=== PATIENT | female | born 1985 | race Caucasian/White ===

== ENCOUNTER 2018-02-12 10:09 | Emergency (ER) | payer BC, MEDICARE, SELFPAY ==
--- NOTE | 2018-02-12 10:24 | ED_ITS ---
HPI - General Adult General Chief complaint: Nausea/Vomiting/Diarrhea Stated complaint: throwing up, chest pains Time Seen by Provider: 02/12/18 10:12 Source: patient Mode of arrival: ambulatory Limitations: no limitations History of Present Illness HPI narrative: Patient states that a couple days ago she had a fever and chills. Has had a sore throat since then. States that last evening she had multiple episodes of nausea and vomiting and then afterwards developed left upper quadrant pain and retrosternal pain that did not get worse with palpation or movement. States she is somewhat feeling nauseous now. No problems breathing. No coughing. Related Data Previous Rx's Medication Instructions Recorded azithromycin See Label Instructions .ROUTE 02/12/18 .COMPLEX #6 tab ondansetron 4 mg PO Q6-8H PRN #14 tab 02/12/18 ondansetron 4 mg PO Q6-8H PRN #6 tab 02/12/18 ranitidine HCl [Zantac] 150 mg PO DAILY #14 tab 02/12/18 sucralfate [Carafate] 5 ml PO QID #420 ml 02/12/18 Allergies Allergy/AdvReac Type Severity Reaction Status Date / Time Penicillins Allergy Hives Verified 02/12/18 10:36 clarithromycin [From Biaxin] AdvReac Vomiting Verified 02/12/18 10:36 Sulfa (Sulfonamide AdvReac Vomiting Verified 02/12/18 10:36 Antibiotics) Review of Systems Constitutional Reports fatigue, Reports fever(s) and Denies headache(s) ENT Ears, Nose, Mouth, and Throat: Denies vertigo, Denies dizziness and Denies headache(s) Cardiovascular Reports chest pain, Denies syncope, Denies palpitations and Denies dyspnea Respiratory Denies cough and Denies dyspnea Gastrointestinal Gastrointestinal: Reports abdominal pain (Left upper quadrant), Denies constipation, Denies diarrhea, Reports nausea and Reports vomiting Genitourinary Denies dysuria Musculoskeletal Denies myalgias and Denies arthralgias Integumentary/Breasts Denies lesions and Denies rash Neurologic Denies vertigo, Denies dizziness, Denies syncope and Denies headache(s) Endocrine Reports fatigue and Denies palpitations Hematologic/Lymphatic Denies easy bleeding and Denies easy bruising PFSH Social History Smoking Status: Never smoker Exam Initial Vital Signs Initial Vital Signs: Vital Signs Temperature 98.8 F 02/12/18 10:26 Pulse Rate 96 H 02/12/18 10:26 Respiratory Rate 21 02/12/18 10:26 Blood Pressure 131/76 H 02/12/18 10:26 Pulse Oximetry 100 02/12/18 10:26 Const General: cooperative, healthy appearing, comfortable, well developed, well groomed and No acute distress Orientation: alert, awake and oriented x3 HENMT Head: normal to inspection, normocephalic and atraumatic Ears: TM's normal bilaterally Throat: uvula midline and other Neck Lymphatic: lymphadenopathy Resp Effort & Inspection: normal respiratory effort Auscultation: clear to auscultation bilaterally Cardio Rate: regular rate Pulses: radial pulses present GI Inspection: normal to inspection and non-distended Palpation: soft, No firm and No tender Skin General: no rashes or lesions noted Trauma: no lacerations or abrasions Neuro General: alert, awake and oriented x3 Cognition: normal cognition Speech: speech normal Gait: normal gait Motor: muscle tone normal throughout Sensory Exam: no sensory deficits noted Extrem General: normal to inspection Psych Appearance: grossly normal and well kempt Course Orders Ordered: ED Orders 02/12/18 10:23 XR chest 2V Stat 02/12/18 10:30 EKG-12 Lead Stat 02/12/18 11:25 Complete Blood Count AUTO DIFF Stat Comprehensive Metabolic Panel Stat Lipase Stat Test Serum,Qual Stat Discontinued Medications Al Hydrox/Mg Hydrox/Simethicone 20 ml/ Lidocaine HCl 15 ml 0 ml PO NOW ONE Stop: 02/12/18 11:12 Last Admin: 02/12/18 11:39 Dose: 35 ml Ondansetron HCl (Zofran) 4 mg IV NOW ONE Stop: 02/12/18 11:12 Last Admin: 02/12/18 11:39 Dose: 4 mg Ranitidine HCl (Zantac) 300 mg PO NOW ONE Stop: 02/12/18 12:34 Last Admin: 02/12/18 12:43 Dose: 300 mg Vital Signs - 8 hr 02/12/18 10:26 02/12/18 11:02 02/12/18 11:38 Temperature 98.8 F Pulse Rate 96 H 81 86 Respiratory Rate 21 17 18 Blood Pressure 131/76 H Blood Pressure [Left Arm] 129/80 H 124/77 H Pulse Oximetry 100 98 100 02/12/18 12:20 02/12/18 12:33 02/12/18 12:56 Temperature 98.4 F Pulse Rate 97 H 97 H 100 H Respiratory Rate 20 17 20 Blood Pressure 123/71 H Blood Pressure [Left Arm] 119/65 123/71 H Pulse Oximetry 99 100 98 Medical Decision Making MDM Narrative Medical decision making narrative: Chest x-ray shows no signs of pneumonia, EKG is unremarkable. Labs not consistent with gallbladder pathology or pancreatitis. She was strep positive. Patient is allergic to penicillin. She has had azithromycin in the past. Also suspect that her left upper quadrant pain and her chest symptoms are related to the vomiting last evening. She did have a GI cocktail here in the emergency department. We discussed return precautions. She expressed understanding and agreement with plan. Lab Data Result diagrams: 02/12/18 11:25 02/12/18 11:25 Lab Results 02/12/18 02/12/18 02/12/18 Range/Units 11:25 11:25 11:25 WBC 16.3 H (4.5-11.0) X10^3/uL RBC 4.55 (4.0-5.2) X10^6/uL Hgb 13.4 (12.0-16.0) g/dL Hct 39.9 (36-46) % MCV 87.8 (80-100) fL MCH 29.5 (26-34) PG MCHC 33.6 (30-36) % RDW 13.8 (11.6-14.8) % Plt Count 244 (150-400) X10^3/uL Neut % (Auto) 80.8 H (50-75) % Lymph % (Auto) 12.8 L (25-40) % [place] % (Auto) 5.9 (3-14) % Eos % (Auto) 0.1 L (2-4) % Baso % (Auto) 0.4 (0-2) % Neut # (Auto) 28269 H (3056-7462) /uL Sodium 138 (137-145) mmol/L Potassium 3.5 (3.4-5.1) mmol/L Chloride 104 (98-107) mmol/L Carbon Dioxide 26 (22-32) mmol/L BUN 9 (7-17) mg/dL Creatinine 0.70 (0.52-1.04) mg/dL Estimated GFR > 60.0 (>60) mL/min BUN/Creatinine Ratio 12.9 (6-22) Glucose 115 H (70-100) mg/dL Calcium 8.7 (8.4-10.2) mg/dL Total Bilirubin 0.4 (0.2-1.3) mg/dL AST 18 (14-36) IU/L ALT 38 (9-52) IU/L Alkaline Phosphatase 59 (38-126) U/L Total Protein 7.1 (6.3-8.2) g/dL Albumin 3.8 (3.5-5.0) g/dL Globulin 3.3 (1.7-4.1) g/dL Albumin/Globulin Ratio 1.2 (1.0-2.8) Lipase 36 (23-300) U/L Serum , Qual Negative (Negative) Imaging Data Chest x-ray: Radiologist's impression: PROCEDURE: XR CHEST 2V INDICATIONS: Throwing up with chest pain TECHNIQUE: 2 views of the chest were acquired. COMPARISON: None. FINDINGS: Surgical changes and devices: None. Lungs and pleura: No pleural effusions or pneumothorax. Lungs are clear. Mediastinum: Mediastinal contours are normal. Heart size is normal. Bones and chest wall: No suspicious bony abnormalities. Soft tissues appear unremarkable. IMPRESSION: No acute cardiopulmonary disease. Dictated by: Shimon Pepe M.D. on 02/12/2018 at 10:52 ECG Data Attestation: I personally reviewed and interpreted this ECG as follows: Prior ECG tracings: not available for review Interpretation: Sinus rhythm Ventricular rate is 77 Sinus arrhythmia Normal QRS Normal intervals No ST T wave changes Discharge Plan Departure Patient Disposition: Home, Self-Care Clinical Impression: Strep throat, Nausea & vomiting Discharge Date/Time: 02/12/18 12:58 Interventions: ED Discharge Assessment Last Done: 02/12/18 12:56 Instructions: DI for Strep Throat Activity Restrictions/Additional Instructions: Take the medication as directed. Increase your fluid intake. Return to the emergency department for any new or worsening symptoms. Call your primary care doctor for follow-up in you return home. Prescriptions: New azithromycin 250 mg tablet See Label Instructions .ROUTE .COMPLEX Qty: 6 RF: 0 sucralfate [Carafate] 100 mg/mL suspension 5 ml PO QID Qty: 420 RF: 0 ranitidine HCl [Zantac] 150 mg tablet 150 mg PO DAILY Qty: 14 RF: 0 ondansetron 4 mg tablet,disintegrating 4 mg PO Q6-8H PRN (Reason: nausea and vomiting) Qty: 6 RF: 0 ondansetron 4 mg tablet,disintegrating 4 mg PO Q6-8H PRN (Reason: nausea and vomiting) Qty: 14 RF: 0
[2018-02-12 10:26] VITALS: BP 131/76; PULSE 96; RESP 21; TEMP 37.1; O2SAT 100
[2018-02-12 11:02] VITALS: BP 129/80; PULSE 81; RESP 17; O2SAT 98
[2018-02-12 11:34] LABS: Add Manual Diff / Slide Review NO; Basophils Percent Auto 0.4 % (0-2); Eosinophils Percent Auto 0.1 % (2-4); Hematocrit 39.9 % (36-46); Hemoglobin 13.4 g/dL (12.0-16.0); Lymphocytes Percent Auto 12.8 % (25-40); Mean Corpuscular HGB Conc 33.6 % (30-36); Mean Corpuscular Hemoglobin 29.5 PG (26-34); Mean Corpuscular Volume 87.8 fL (80-100); Monocytes Percent Auto 5.9 % (3-14); Neutrophils Absolute Auto 13200 /uL (3000-5900); Neutrophils Percent Auto 80.8 % (50-75); Platelet Count 244 X10^3/uL (150-400); Red Blood Cell Count 4.55 X10^6/uL (4.0-5.2); Red Cell Distribution Width 13.8 % (11.6-14.8); White Blood Cell Count 16.3 X10^3/uL (4.5-11.0)
[2018-02-12 11:38] VITALS: BP 124/77; PULSE 86; RESP 18; O2SAT 100
[2018-02-12] MEDS: ONDANSETRON 4 MG/2 ML INJ IV (11:39)
[2018-02-12] MEDS: MAG HYDROX/ALUMINUM/SIMETH SUS 20 ML, LIDOCAINE VISCOUS 2% 15 ML PO (11:39)
[2018-02-12 11:42] LABS: Pregnancy Test Serum,Qual Negative (Negative)
[2018-02-12 11:45] LABS: Alanine Aminotransferase 38 IU/L (9-52); Albumin 3.8 g/dL (3.5-5.0); Albumin Globulin Ratio 1.2 (1.0-2.8); Alkaline Phosphatase 59 U/L (38-126); Aspartate Aminotransferase 18 IU/L (14-36); BUN Creatinine Ratio 12.9 (6-22); Bilirubin Total 0.4 mg/dL (0.2-1.3); Blood Urea Nitrogen 9 mg/dL (7-17); Calcium 8.7 mg/dL (8.4-10.2); Carbon Dioxide 26 mmol/L (22-32); Chloride 104 mmol/L (98-107); Estimated Glomerular Filt Rate > 60.0 mL/min (>60); Globulin 3.3 g/dL (1.7-4.1); Glucose 115 mg/dL (70-100); HEMOLYSIS 17 (0-50); Lipase 36 U/L (23-300); Potassium 3.5 mmol/L (3.4-5.1); Sodium 138 mmol/L (137-145); Total Protein 7.1 g/dL (6.3-8.2)
[2018-02-12 12:20] VITALS: BP 119/65; PULSE 97; RESP 20; O2SAT 99
[2018-02-12 12:33] VITALS: BP 123/71; PULSE 97; RESP 17; O2SAT 100
[2018-02-12 12:56] VITALS: BP 123/71; PULSE 100; RESP 20; TEMP 36.9; O2SAT 98
== END 2018-02-12 12:58 | disposition home or self-care (01) ==
PROVIDERS: Emergency Provider Emergency Medicine
DX: J02.0 Streptococcal pharyngitis (principal); R11.2 Nausea with vomiting, unspecified; R07.89 Other chest pain
CPT/HCPCS: 36591; 71046; 80053; 83690; 84703; 85025; 87880; 93005; 96374; 99283; 99285; J2405